=== PATIENT | male | born 1950 | race Caucasian/White ===

== ENCOUNTER 2016-11-19 12:36 | Day surgery (SDC) | payer OTHER, MEDICARE ==
--- NOTE | 2016-11-18 10:06 | PREOPHP ---
DATE OF ADMISSION: 11/19/2016 PREOPERATIVE INTERNAL MEDICINE CONSULTATION/MEDICAL HISTORY AND PHYSICAL Patient to have surgery with Dr. Anmol Blanco 11/19/2016. REASON FOR CONSULTATION: Consultation requested by Dr. Anmol Blanco for medical evaluation and clearance of a 66-year-old gentleman about to undergo surgery. Thank you, Dr. Blanco, for allowing us to participate in the care of this patient. HISTORY OF PRESENT ILLNESS: Imelda Pagan, a 66-year-old gentleman, problems with his right knee is currently being admitted for arthroscopic correction of the above. In terms of his past surgical history he has had an inguinal hernia surgery on the left, has had injuries to both his right and left wrist and other than that has not had any major surgeries far nor has he had any medical hospitalizations. In general he states that he is relatively healthy. His only medications include supplements. ALLERGIES: HE IS ALLERGIC TO: 1. POLLEN. 2. MOLD. 3. VARIETY OF DIFFERENT FOODS. MEDICATIONS: Other than that, he takes no prescription medications before this, currently he is taking some blood pressure medications which is Toprol-XL a total of 50 mg in the morning and 25 in the evening. SOCIAL HISTORY: The patient is , has no children. He does not smoke. Alcohol socially. Does drink coffee, he is employed and usually has no difficulty sleeping at night. FAMILY HISTORY: Father, 67 of an NV. Mother at age 85, also had heart issues, but primarily of old age. One brother of suicide and alcoholism and 1 sister is alive and well. He has a family history of diabetes , heart, cancer as well as strokes, no hypertension to his knowledge. REVIEW OF SYSTEMS HEENT: Periodic headaches, primarily sinus headaches, occasional tension headaches. CARDIORESPIRATORY: Denies any chest pain other than some occasional chest wall pain, no shortness of breath except for GI. GASTROINTESTINAL: Signs and symptoms of acid reflux disease but no melena or hematemesis. GENITOURINARY: No urgency, frequency. MUSCULOSKELETAL: Positive for right knee pain. NEUROPSYCHIATRIC: Unremarkable. PHYSICAL EXAMINATION: VITAL SIGNS: The patient's blood pressure was 170/80, pulse was 94 and regular , respirations were 18, temperature 98.7, height 5 feet 10 inches, weight 190 pounds. GENERAL: The patient was noted to be a well-developed, well-nourished male, alert and cooperative, in no apparent acute distress, oriented to time, place, and person. HEAD, EARS, EYES, NOSE AND THROAT: Head was atraumatic. Eyes: Pupils were equal, reactive to light and accommodation. Fundi were benign. Tympanic membranes were unremarkable. Nose was negative. Mouth was unremarkable. Fair oral hygiene was present. NECK: Supple without any rigidity. Trachea was midline. Thyroid was within normal limits. Neck veins were flat. Carotid pulses were equal. No bruits were heard. BACK: Unremarkable. CHEST: Symmetrical. BREASTS AND AXILLARY: Did not reveal any masses. LUNGS: Clear to percussion and auscultation. HEART: PMI is fifth intercostal space at the midclavicular line. Regular sinus rhythm was noted. No significant murmurs, rubs, or gallops being elicited. ABDOMEN: Soft, good bowel sounds were noted. No significant organomegaly, masses, or tenderness. GENITALIA: Normal male external genitalia. RECTAL AND PROSTATIC: Revealed mild prostatic enlargement, no nodularity, no rectal masses being palpable. EXTREMITIES: Not revealing clubbing, edema or cyanosis. Peripheral pulses were physiologic. SKIN: Moist and warm without any eruptions. No gross lymphadenopathy was noted. NEUROLOGIC: Grossly intact. IMPRESSION: 1. Torn meniscus, right knee. 1. Hypertension. 2. Prostatic enlargement. 3. Stable health. LABORATORY DATA: Review of laboratory and other data revealed the following: The patient's chemistry panel revealed normal electrolytes, random glucose of 110, BUN and creatinine were normal. Liver function tests were basically normal. Random cholesterol was elevated. Magnesium, thyroid function tests were normal. The patient's CBC was normal, sed rate was somewhat elevated, possibly compatible with his arthritis. Urinalysis was normal as was his PT and PTT. The patient's EKG revealed basic sinus rhythm with occasional PACs, heart rate of 98, and no acute ST-T wave changes being noted. A chest x-ray was within normal limits. DISCUSSION: Dr. Blanco, I see no contraindication in this patient undergoing current proposed surgery under desired form of anesthesia, the patient's blood pressure at this point is quite acceptable and will continue to improve as he continues taking his medications which he is doing religiously at this point. Thank you again, Dr. Blanco, for allowing us to participate in care of this patient. Dictated By: KAREEM RAYGOZA MD SS/DELVIS Conf#: [id number] DID#: [id number] MTDAnisha
[2016-11-18 14:10] VITALS: BMI 26.9
[2016-11-19] VITALS (7 sets, daily range): BP systolic 119–160; BP diastolic 66–85; PULSE 77–102; RESP 14–16; Ht 177.8 cm; Wt 86.6 kg
[~2016-11-19] VITALS: Ht 177.8 cm; Wt 86.6 kg
[2016-11-19] MEDS ORDERED: METO50TA16 PO (14:05)
[2016-11-19] MEDS ORDERED: METO25TA7 PO (14:05)
[2016-11-19] MEDS ORDERED: ROPIVACAINE 0.5 % 30 ML VIAL ONE (14:47)
[2016-11-19] MEDS ORDERED: POVIDONE IODINE 10% 28.4 GM OINT ONE (14:47)
[2016-11-19] MEDS ORDERED: BUPIVACAINE 0.5% (SDV) 30 ML INJ ONE (14:47)
[2016-11-19] MEDS ORDERED: MIDAZOLAM 1 MG/ML 2 ML INJ ONE (14:57)
[2016-11-19] MEDS ORDERED: METOCLOPRAMIDE 10 MG INJ ONE (14:57)
[2016-11-19] MEDS ORDERED: FENTAnyl 50 MCG/ML VIAL ONE (14:57)
[2016-11-19] MEDS ORDERED: PROPOFOL 20 ML ONE (14:57)
[2016-11-19] MEDS ORDERED: KETOROLAC 30 MG INJ ONE (15:02)
--- NOTE | 2016-11-19 15:07 | HPN ---
Date/Time of Note Date/Time of Note DATE: 11/19/16 TIME: 15:07 Interval H&P Admission Note Pt. seen H&P reviewed: No system changes SCHUYLER LANDRUM MD Nov 19, 2016 15:07
[2016-11-19] MEDS ORDERED: CEFAZOLIN 1 GM INJ ONE (15:09)
[2016-11-19] MEDS ORDERED: morphine 2 MG INJ IV PRN (15:30)
[2016-11-19] MEDS ORDERED: HYDROmorphONE (0.2 MG/ML) 10ML SYG IV PRN ×3 (15:30)
[2016-11-19] MEDS ORDERED: hydrALAzine 20 MG INJ IV PRN (15:30)
[2016-11-19] MEDS ORDERED: morphine 10 MG INJ IV PRN (15:30)
[2016-11-19] MEDS ORDERED: OXYCODONE/ACETAMINOPHEN (5/325) TAB PO PRN ×3 (15:30)
[2016-11-19] MEDS ORDERED: DIPHENHYDRAMINE 50 MG INJ IV PRN (15:30)
[2016-11-19] MEDS ORDERED: MEPERIDINE 25 MG INJ IV PRN (15:30)
[2016-11-19] MEDS ORDERED: METOCLOPRAMIDE 10 MG INJ IV PRN (15:30)
[2016-11-19] MEDS ORDERED: LABETALOL HCL 20MG INJ IV PRN (15:30)
[2016-11-19] MEDS ORDERED: ONDANSETRON 4 MG INJ IV PRN (15:30)
[2016-11-19] MEDS ORDERED: EPHEDrine SULFATE 50 MG/5 ML SYG ONE (15:49)
--- NOTE | 2016-11-19 17:23 | OPR ---
Date/Time of Note Date/Time of Note DATE: 11/19/16 TIME: 17:16 Operative Report Free Text/Dictation DATE OF PROCEDURE: 11/19/2016 SURGEON: Anmol Landrum M.D. ELEMENTARY TEACHER: none PREOP DIAGNOSES: 1. Right knee pain 2. 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 Right knee posterior horn medial meniscal tear 4. Right Knee lateral meniscal tear POSTOP DIAGNOSES: 1. Right knee pain 2. 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 Right knee posterior horn medial meniscal tear 4. Right Knee lateral meniscal tear PROCEDURE: 1. Surgical arthroscopy of the Right knee with partial medial and lateral meniscectomy 2. Chondroplasty of the medial and lateral and patella femoral compartments TOURNIQUET TIME: 0 MINUTES AT 250 mmHg EBL: Less than 20 ML COMPLICATIONS: None CONDITION UPON LEAVING THE OPERATING ROOM: Stable to PACU ANESTHESIA TYPE: General, local INDICATIONS: Patient is a 66-year-old male with ongoing Right knee pain. He has complained of having clicking and locking symptoms over the medial aspect of his knee with no relief with PT or anti-inflammatory. Patient has decided to proceed with surgery. Patient is aware that he has extensive OA to the knee and the goal with this surgery is help achieve better range and motion and help prolong need for tka. RISK NOTE: Patient was explained the risks and benefits of the surgery in the patients [place] language, including not limited to infection, bleeding, loss of limb, loss of life, need for future surgery, risk of anesthesia, risk of injury to the blood vessels and nerves, ligaments or tendons, and risk of deep vein thrombosis. Patient understood these risks and wished to proceed with the surgery. OPERATIVE NOTE: The correct operative site was noted and marked in the preoperative holding area. The patient was then brought back into the operative theater, placed supine on the operative table. Right knee was examined under anesthesia. Range of motion was 0-120. There is no varus or valgus or anterior posterior instability. There is crepitus noticed at the patellofemoral joint. Tourniquet was then placed on the operative extremity thigh non-sterilely. Patient was then given preoperative antibiotics and then prepped and draped in normal sterile fashion. A timeout was taken and all parties in the room agreed it was the correct patient, correct extremity and correct procedure. 10 cc of 0.25% Marcaine without epi was injected into the anteriorlateral and anteriormedial portal sites prior to incision. Standard anterior lateral portal was created and the knee joint was entered with a blunt tipped trocar, followed by 30 arthroscope. Inflow was achieved with a pump and the pressure maintained at approximately 50 mmHg. A routine arthroscopic surgery was performed. Suprapatella pouch was unremarkable. The undersurface of the patella showed advanced grade 2 chondromalacia and the medial femoral trochlear groove showed advanced grade 2 changes midline with no exposed bone. The medial and lateral gutters were visualized. There were no loose bodies seen. There is an inflamed hypertrophic plica noted in the anterior and superior medial aspect of the knee. The popliteus hiatus was entered and was normal. Lateral compartment was entered and grade 1/2 chondromalacia was seen on the lateral tibial plateau and femoral condyle. Scope was then brought into the intercondylar notch and an anteromedial portal was made. Shaver was brought into the knee and small amount of fat pad and scar tissue was initially gently debrided. The anterior cruciate ligament was intact and probed. The knee was brought into a valgus position and the medial compartment was entered. The articular surface of the medial femoral condyle revealed diffuse grade 2 chondromalacia and medial tibial plateau revealed diffuse grade 2 chondromalacia. There was a degenerative posterior horn medial meniscus tear extending to the midbody that was associated with a cleavage tear that visualized and debrided gently with a motorized shaver and basket forceps, the posterior horn demonstrated a degenerative tear and fibrillation pattern. The motorized shaver and basket biters were used to smooth the remaining meniscal rim, with care to maintain the peripheral meniscal rim. A probe was introduced and this was carefully probed and was found to be stable. Chondroplasty was then carried out along the weightbearing aspect of the medial femoral condyle, medial tibial plateau, taking care to remove only loose articular cartilage debris and preserve functional articular cartilage. The lateral compartment was reentered and the loose chondral debris was debrided with motorized shaver. The articular surface of the latera femoral condyle revealed diffuse grade 1/2 chondromalacia and lateral tibial plateau revealed diffuse grade 1 chondromalacia. There was a degenerative posterior horn lateral meniscus tear extending to the midbody that was associated with a cleavage tear that visualized and debrided gently with a motorized shaver and basket forceps, the posterior horn demonstrated a degenerative tear and fibrillation pattern. The motorized shaver and basket biters were used to smooth the remaining meniscal rim, with care to maintain the peripheral meniscal rim. A probe was introduced and this was carefully probed and was found to be stable. Chondroplasty was then carried out along the weightbearing aspect of the lateral femoral condyle, tibial plateau, taking care to remove only loose articular cartilage debris and preserve functional articular cartilage. Attention was then directed back to the patella femoral joint and a chondroplasty was carried out along the weightbearing aspect of the trochlea and undersurface of the patella to again remove loose debris and maintain functional active articular cartilage. The knee was then irrigated with additional 2 L of lactated Ringers solution. Excess fluid was then drained. Range of motion was then attempted showing 0- 125 degrees of motion The portal sites were closed with 4-0 Monocryl and Steri-Strips and dressed with Xeroform and triple antibiotic ointment. The knee was then injected with 20 cc of 0.5% plain ropivacaine. A dry sterile dressing was then applied followed by a bulky soft bandage in a thigh-high Angelo stocking. At the completion of the surgery patient had palpable pulses, soft arms and brisk cap refill. The patient tolerated the procedure well and was taken to the PACU without any complications. All sponge and needle counts were correct. Patient will begin pain medicine and 48 hours of antibiotics as well as aspirin 81 mg for the duration of 4 weeks postoperatively Procedure Date: Nov 19, 2016 ANMOL LANDRUM MD Nov 19, 2016 17:23
== END 2016-11-19 19:25 | disposition home or self-care (01) ==
LOC: EDSEX 12:36 → SDS 12:36
PROVIDERS: ATTEND Orthopaedic Surgery
DX: M23.221 Derangement of posterior horn of medial meniscus due to old tear or injury, right knee (principal); M23.251 Derangement of posterior horn of lateral meniscus due to old tear or injury, right knee; M94.261 Chondromalacia, right knee; I10 Essential (primary) hypertension; N40.0 Benign prostatic hyperplasia without lower urinary tract symptoms
CPT/HCPCS: 29880; J0690; J1885; J2250; J2765; J2795; J3010